=== PATIENT | female | born 1995 | race Caucasian/White ===

== ENCOUNTER 2018-01-14 14:51 | Emergency (ER) | payer OTHER ==
[2018-01-14 15:21] VITALS: BP 126/62
--- NOTE | 2018-01-14 15:31 | UC ---
Skin Complaint HPI - HPI Summary HPI Summary: Pt presents with c/o of thick white "fuzz" on tongue and "red blotches" on lower extremities that have since resolved. Pt has started new medications , BCP and wellbutrin in the last 2 weeks. Pt has been using albuterol inh prn over the last 2 weeks. - History of Current Complaint Chief Complaint: UCGeneralIllness Time Seen by Provider: 01/14/18 15:11 Stated Complaint: POSS MED REACTION-RASH/SWEATING Hx Obtained From: Patient Hx Last Menstrual Period: 12/23/17 ?: No Onset/Duration: Sudden Onset, Lasting Days, Still Present Skin Exposure Onset/Duration: Days Ago Timing: Constant Onset Severity: Mild Current Severity: Mild Pain Intensity: 6 Location: Discrete - tongue Character: Painful Aggravating Factor(s): Touch Alleviating Factor(s): Unknown Associated Signs & Symptoms: Positive: Tenderness Related History: Recent change in medication - Allergy/Home Medications Allergies/Adverse Reactions: Allergies Allergy/AdvReac Type Severity Reaction Status Date / Time seasonal Allergy Unknown Unknown Uncoded 01/14/18 15:09 Reaction Details Home Medications: Home Medications Bupropion XL* [Wellbutrin XL *] 150 mg PO DAILY 01/14/18 [History Confirmed ] Norethindrone/Eth Est 1.12/31NF [Junel .12/31 (NF)] 1 tab PO 01/14/18 [History] Review of Systems Constitutional: Negative Skin: Negative Eyes: Negative ENT: Other - tongue tenderness, skin changes on tongue Respiratory: Negative Cardiovascular: Negative Gastrointestinal: Negative Genitourinary: Negative Motor: Negative Neurovascular: Negative Musculoskeletal: Negative Neurological: Negative Psychological: Negative Is Patient Immunocompromised?: No All Other Systems Reviewed And Are Negative: Yes PMH/Surg Hx/FS Hx/Imm Hx Previously Healthy: Yes - Surgical History Surgical History: Yes Surgery Procedure, Year, and Place: b/l ear tubes, wisdom teeth - Family History Known Family History: Positive: Cardiac Disease - Social History Occupation: Employed Full-time Lives: With Family Alcohol Use: Occasionally Substance Use Type: None Smoking Status (MU): Heavy Every Day Tobacco Smoker Type: Cigarettes Amount Used/How Often: 1PPD Have You Smoked in the Last Year: Yes Physical Exam Triage Information Reviewed: Yes Appearance: Well-Appearing, Obese Vital Signs: Initial Vital Signs Temp 99.1 F 06/13/18 15:11 Pulse 86 01/14/18 15:11 Resp 18 01/14/18 15:11 BP 126/62 01/14/18 15:11 Pulse Ox 98 01/14/18 15:11 Vital Signs Reviewed: Yes Eye Exam: Normal ENT Exam: Other ENT: Positive: Other - tongue had thick white coating, that was not scrapeable. Dental Exam: Normal Neck exam: Normal Respiratory Exam: Normal Cardiovascular Exam: Normal Abdominal Exam: Normal Musculoskeletal Exam: Normal Neurological Exam: Normal Psychological Exam: Normal Skin Exam: Normal Course/Dx - Differential Diagnoses - Skin Complaint Differential Diagnoses: Urticaria, Other - thrush - Diagnoses Provider Diagnoses: thrush Discharge - Sign-Out/Discharge Documenting (check all that apply): Discharge/Admit/Transfer - Discharge Plan Condition: Stable Disposition: HOME Prescriptions: Nystatin SUSPENSION ORAL SYR* 5 ml PO Q8H #105 ml Patient Education Materials: Oral Candidiasis (ED) Referrals: [facility] [Outside] Non Staff,Doctor [Primary Care Provider] - Additional Instructions: Please follow up with your PCP as needed. - Billing Disposition and Condition Condition: STABLE Disposition: Home
== END 2018-01-14 15:41 | disposition home or self-care (01) ==
LOC: UCCORT 14:51
DX: B37.9 Candidiasis, unspecified (principal); R21 Rash and other nonspecific skin eruption; Z91.09 Other allergy status, other than to drugs and biological substances
CPT/HCPCS: 99202; G0463